=== PATIENT | female | born 2000 | race Caucasian/White ===

== ENCOUNTER 2024-08-03 09:30 | Emergency (ER) | payer BC ==
[2024-08-03 10:05] VITALS: PULSE 80; TEMP 97.8
[2024-08-03 10:14] LABS: Absolute Neutrophil Ct (ANC) 5.38 x10^3/uL (1.56-6.13); BASOPHIL % 0.3 % (0.1-1.2); Basophil (Absolute #) 0.02 x10^3/uL (0.01-0.08); Eosinophil % 1.8 % (0.7-5.8); Eosinophil (Absolute #) 0.13 x10^3/uL (0.04-0.36); Hematocrit 38.3 % (34.1-44.9); Hemoglobin 12.8 g/dL (11.2-15.7); IMMATURE GRAN # 0.02 x10^3u/L (0.001-0.031); IMMATURE GRAN % 0.3 % (0.001-0.429); Lymphocyte (Absolute #) 1.31 x10^3/uL (1.18-3.74); Mean Cell Volume 84.2 fL (79.4-94.8); Mean Corpuscular Hemoglobin 28.1 pg (25.6-32.2); Mean Corpuscular Hgb Concent. 33.4 g/dL (32.2-35.5); Mean Platelet Volume 9.8 fL (9.4-12.3); Monocyte (Absolute #) 0.41 x10^3/uL (0.24-0.86); Monocytes % 5.6 % (4.7-12.5); Platelet Count 399 x10^3/uL (182-369); Red Blood Count 4.55 x10^6/uL (3.93-5.22); Red Cell Distribution Width 13.5 % (11.7-14.4); White Blood Count 7.3 x10^3/uL (3.98-10.04)
[2024-08-03] MEDS ORDERED: Zofran 4 MG/2 ML VIAL ONE (10:16)
[2024-08-03] MEDS ORDERED: MORPHINE SULFATE 4 MG INJ ONE (10:17)
[2024-08-03] MEDS ORDERED: Sodium Chloride 0.9% 1000 ML 1,000 ML ONE (10:17)
[2024-08-03 10:20] LABS: ALBUMIN 4.7 g/dL (3.5-5.0); ANION GAP 16.3 MEQ/L (5-15); BILIRUBIN,TOTAL 0.5 mg/dL (0.2-1.3); Creatinine 1 0.83 mg/dL (0.52-1.04); EST GLOMERULAR FILTRATION RATE 100.3 ML/MIN; Potassium 3.5 mmol/L (3.5-5.1); Total Protein 7.9 g/dL (6.3-8.2)
[2024-08-03] MEDS: MORPHINE SULFATE 4 MG INJ IV ONE (10:20)
[2024-08-03] MEDS: Zofran 4 MG/2 ML VIAL IV ONE (10:20)
[2024-08-03 10:21] LABS: HCG URINE TEST NEGATIVE (NEGATIVE)
[2024-08-03] MEDS: Sodium Chloride 0.9% 1000 ML 1,000 ML IV STA (10:22)
[2024-08-03 10:23] LABS: Appearance Clear (Clear); Bacteria Rare /HPF (None Seen); Bilirubin Negative (Negative); Blood Trace (Negative); Epithelial Cells Few /HPF (None Seen); Glucose, Urine Negative (Negative); Ketones 15 (Negative); Leukocyte Esterase Negative (Negative); Nitrite Negative (Negative); Ph 7.5 (4.6-8.0); Protein,Urine Dip Trace (Negative); Specific Gravity 1.015 (1.005-1.030); Urobilinogen 0.2 mg/dL (0.2)
[2024-08-03 10:25] LABS: ADD URINE CULTURE? YES (NO)
--- NOTE | 2024-08-03 10:49 | ERPHSYRPT ---
- History of Present Illness Time Seen by Provider: 08/03/24 09:32 Historian: patient Exam Limitations: no limitations Patient Subjective Stated Complaint: Pt c/o of left flank pain that radiates to the left front lower quadrant, pain for 3 days Triage Nursing Assessment: Pt brought to the ER by her , rolan sparks, rates pain as 7/10, states that the pain is getting worse with time, pain to left lower abdomen with palpatation, pt is trying to get at this time,urinary frequency, diarrhea, pulses normal, skin n/w/d, appears to be in moderate pain Physician History: 24-year-old female presented to the ER with complaint of left flank pain off and on for the last 3 days. Continues last couple of hours, moderate to severe sharp throbbing, radiating to left groin. Reports associated loose stool and so me dysuria with hesitancy. Reports associated nausea but no vomiting. No history of kidney stones. No fever or chills reported. Allergies/Adverse Reactions: No Known Drug Allergies Allergy (Verified 08/03/24 09:57) Hx Influenza Vaccination/Date Given: No Hx Pneumococcal Vaccination/Date Given: No Travel Risk - International Travel Have you traveled outside of the country in past 3 weeks: No - Emerging Infectious Disease Are you exhibiting symptoms associated with any current EIDs: No - Review of Systems Constitutional: No Symptoms Eyes: No Symptoms Ears, Nose, & Throat: No Symptoms Respiratory: No Symptoms Cardiac: No Symptoms Abdominal/Gastrointestinal: Abdominal Pain, Nausea, Diarrhea Genitourinary Symptoms: Dysuria, Hesitancy, Flank Pain Skin: No Symptoms Neurological: No Symptoms Endocrine: No Symptoms - Past Medical History Pertinent Past Medical History: Yes Other Medical History: Hemangioma - Past Surgical History Past Surgical History: Yes Other Surgical History: Hemangiomas - Female History Hx Last Menstrual Period: 07/15/2024 Hx Now: (unkn) - Social History Smoking Status: Current every day smoker Exposure to second hand smoke: No Drug Use: none Patient Lives Alone: No - Social Determinants of Health Will the patient participate in the screening: Yes Do you worry about a steady place to live?: No Do you have any problems with any of the following?: No known problems In the past 12 months,have you had to go without utilities?: No Transportation Issues: No Has anyone in your support network made you feel unsafe?: No Have you or anyone in your house had to go without enough: No - Nursing Vital Signs Nursing Vital Signs: Initial Vital Signs Temperature 97.8 F 08/03/24 09:46 Pulse Rate 80 08/03/24 09:46 Blood Pressure 135/77 08/03/24 09:46 O2 Sat by Pulse Oximetry 100 08/03/24 09:46 Pain Scale Pain Intensity [Left Lateral 7 Back] Pain Intensity 7 - Physical Exam General Appearance: no apparent distress, alert Eye Exam: PERRL/EOMI Ears, Nose, Throat Exam: normal ENT inspection Neck Exam: normal inspection, full range of motion Respiratory Exam: normal breath sounds, lungs clear Cardiovascular Exam: regular rate/rhythm, normal heart sounds Gastrointestinal/Abdomen Exam: soft, normal bowel sounds, tenderness (Left f lank/left lower quadrant), guarding Back Exam: CVA tenderness (Left) Extremity Exam: normal inspection, normal range of motion Neurologic Exam: alert, oriented x 3, cooperative Skin Exam: normal color SpO2 Interpretation: normal SpO2: 99 O2 Delivery: Room Air Ordered Tests: Active Orders 24 hr Category Date Time Status IV Insertion STAT Care 08/03/24 10:10 Completed NPO (ED) STAT Care 08/03/24 10:10 Completed ABDOMEN AND PELVIS W/0 CONTRAS [CT] Stat Exams 08/03/24 10:11 Completed CBC W DIFF Stat Lab 08/03/24 10:05 Completed CMP Stat Lab 08/03/24 10:05 Completed CULTURE,URINE Stat Lab 08/03/24 10:05 Received HCG QUALITATIVE, URINE Stat Lab 08/03/24 10:05 Completed LIPASE Stat Lab 08/03/24 10:05 Completed UA W/RFX UR CULTURE Stat Lab 08/03/24 10:05 Completed Medication Summary Discontinued Medications Generic Name Dose Route Start Last Admin Trade Name Freq PRN Reason Stop Dose Admin Sodium Chloride 1,000 mls @ 999 mls/hr 08/03/24 10:10 08/03/24 12:51 Sodium Chloride 0.9% 1000 Ml IV 08/03/24 11:10 Infused .Q1H1M STA Infusion Sodium Chloride Confirm 08/03/24 10:17 Sodium Chloride 0.9% 1000 Ml Administered 08/03/24 10:18 Dose 1,000 mls @ ud .ROUTE .STK-MED ONE Ceftriaxone Sodium 2 gm in 100 mls @ 200 mls/hr 08/03/24 12:35 08/03/24 13:47 Rocephin 2 Gm/100 Ml Nacl IV 08/03/24 13:04 Infused STAT ONE Infusion Ceftriaxone Sodium Confirm 08/03/24 12:43 Rocephin 2 Gm/100 Ml Nacl Administered 08/03/24 12:44 Dose 2 gm in 100 mls @ ud IV .STK-MED ONE Ketorolac Tromethamine 30 mg 08/03/24 10:52 08/03/24 11:05 Ketorolac Tromethamine 30 Mg/Ml Inj IV 08/03/24 10:53 30 mg STAT ONE Administration Ketorolac Tromethamine Confirm 08/03/24 11:05 Ketorolac Tromethamine 30 Mg/Ml Inj Administered 08/03/24 11:06 Dose 30 mg .ROUTE .STK-MED ONE Morphine Sulfate 4 mg 08/03/24 10:10 08/03/24 10:20 Morphine Sulfate 4 Mg/Ml Injection IV 08/03/24 10:11 4 mg STAT ONE Administration Morphine Sulfate Confirm 08/03/24 10:17 Morphine Sulfate 4 Mg/Ml Injection Administered 08/03/24 10:18 Dose 4 mg .ROUTE .STK-MED ONE Ondansetron HCl 4 mg 08/03/24 10:10 08/03/24 10:20 Ondansetron Hcl 4 Mg/2 Ml Vial IV 08/03/24 10:11 4 mg STAT ONE Administration Ondansetron HCl Confirm 08/03/24 10:16 Ondansetron Hcl 4 Mg/2 Ml Vial Administered 08/03/24 10:17 Dose 4 mg .ROUTE .STK-MED ONE Tamsulosin HCl 0.4 mg 08/03/24 12:34 08/03/24 12:45 Tamsulosin Hcl 0.4 Mg Cap PO 08/03/24 12:35 0.4 mg STAT STA Administration Tamsulosin HCl Confirm 08/03/24 12:43 Tamsulosin Hcl 0.4 Mg Cap Administered 08/03/24 12:44 Dose 0.4 mg .ROUTE .STK-MED ONE Lab/Rad Data: Laboratory Result Diagrams 08/03/24 10:05 08/03/24 10:05 Laboratory Results 08/03/24 08/03/24 08/03/24 Range/Units 10:05 10:05 10:05 WBC 7.3 (3.98-10.04) x10^3/uL RBC 4.55 (3.93-5.22) x10^6/uL Hgb 12.8 (11.2-15.7) g/dL Hct 38.3 (34.1-44.9) % MCV 84.2 (79.4-94.8) fL MCH 28.1 (25.6-32.2) pg MCHC 33.4 (32.2-35.5) g/dL RDW 13.5 (11.7-14.4) % Plt Count 399 H (182-369) x10^3/uL MPV 9.8 (9.4-12.3) fL Gran % 74.0 H (34.0-71.1) % Immature Gran % (Auto) 0.3 (0.001-0.429) % Nucleat RBC Rel Count 0.0 (0.00-0.2) % Eos # (Auto) 0.13 (0.04-0.36) x10^3/uL Immature Gran # (Auto) 0.02 (0.001-0.031) x10^3u/L Absolute Lymphs (auto) 1.31 (1.18-3.74) x10^3/uL Absolute Monos (auto) 0.41 (0.24-0.86) x10^3/uL Absolute Nucleated RBC 0.00 (0.00-0.012) x10^3u/L Lymphocytes % 18.0 L (19.3-51.7) % Monocytes % 5.6 (4.7-12.5) % Eosinophils % 1.8 (0.7-5.8) % Basophils % 0.3 (0.1-1.2) % Absolute Granulocytes 5.38 (1.56-6.13) x10^3/uL Basophils # 0.02 (0.01-0.08) x10^3/uL Sodium 141 (135-145) mmol/L Potassium 3.5 (3.5-5.1) mmol/L Chloride 106 (98-107) mmol/L Carbon Dioxide 22 (22-30) mmol/L Anion Gap 16.3 H (5-15) MEQ/L BUN 7 (7-17) mg/dL Creatinine 0.83 (0.52-1.04) mg/dL Estimated GFR 100.3 ML/MIN Glucose 99 (74-106) mg/dL Calcium 10.0 (8.4-10.2) mg/dL Total Bilirubin 0.50 (0.2-1.3) mg/dL AST 25 (14-36) U/L ALT 20 (0-35) U/L Alkaline Phosphatase 106 (38-126) U/L Serum Total Protein 7.9 (6.3-8.2) g/dL Albumin 4.7 (3.5-5.0) g/dL Lipase 41 (23-300) U/L Urine Color (Yellow) Urine Appearance (Clear) Urine pH (4.6-8.0) Ur Specific [place] (1.005-1.030) Urine Protein (Negative) Urine Glucose (UA) (Negative) mg/dL Urine Ketones (Negative) Urine Blood (Negative) Urine Nitrite (Negative) Urine Bilirubin (Negative) Urine Urobilinogen (0.2) mg/dL Ur Leukocyte Esterase (Negative) U Hyaline Cast (Auto) (0-2) /LPF Urine Microscopic RBC (0-5) /HPF Urine Microscopic WBC (0-5) /HPF Ur Epithelial Cells (None Seen) /HPF Urine Bacteria (None Seen) /HPF Urine Culture Reflexed (NO) Urine HCG, Qual NEGATIVE (NEGATIVE) 08/03/24 Range/Units 10:05 WBC (3.98-10.04) x10^3/uL RBC (3.93-5.22) x10^6/uL Hgb (11.2-15.7) g/dL Hct (34.1-44.9) % MCV (79.4-94.8) fL MCH (25.6-32.2) pg MCHC (32.2-35.5) g/dL RDW (11.7-14.4) % Plt Count (182-369) x10^3/uL MPV (9.4-12.3) fL Gran % (34.0-71.1) % Immature Gran % (Auto) (0.001-0.429) % Nucleat RBC Rel Count (0.00-0.2) % Eos # (Auto) (0.04-0.36) x10^3/uL Immature Gran # (Auto) (0.001-0.031) x10^3u/L Absolute Lymphs (auto) (1.18-3.74) x10^3/uL Absolute Monos (auto) (0.24-0.86) x10^3/uL Absolute Nucleated RBC (0.00-0.012) x10^3u/L Lymphocytes % (19.3-51.7) % Monocytes % (4.7-12.5) % Eosinophils % (0.7-5.8) % Basophils % (0.1-1.2) % Absolute Granulocytes (1.56-6.13) x10^3/uL Basophils # (0.01-0.08) x10^3/uL Sodium (135-145) mmol/L Potassium (3.5-5.1) mmol/L Chloride (98-107) mmol/L Carbon Dioxide (22-30) mmol/L Anion Gap (5-15) MEQ/L BUN (7-17) mg/dL Creatinine (0.52-1.04) mg/dL Estimated GFR ML/MIN Glucose (74-106) mg/dL Calcium (8.4-10.2) mg/dL Total Bilirubin (0.2-1.3) mg/dL AST (14-36) U/L ALT (0-35) U/L Alkaline Phosphatase (38-126) U/L Serum Total Protein (6.3-8.2) g/dL Albumin (3.5-5.0) g/dL Lipase (23-300) U/L Urine Color Yellow (Yellow) Urine Appearance Clear (Clear) Urine pH 7.5 (4.6-8.0) Ur Specific [place] 1.015 (1.005-1.030) Urine Protein Trace A (Negative) Urine Glucose (UA) Negative (Negative) mg/dL Urine Ketones 15 A (Negative) Urine Blood Trace (Negative) Urine Nitrite Negative (Negative) Urine Bilirubin Negative (Negative) Urine Urobilinogen 0.2 (0.2) mg/dL Ur Leukocyte Esterase Negative (Negative) U Hyaline Cast (Auto) 3-5 A (0-2) /LPF Urine Microscopic RBC 11-20 A (0-5) /HPF Urine Microscopic WBC 6-10 A (0-5) /HPF Ur Epithelial Cells Few (None Seen) /HPF Urine Bacteria Rare A (None Seen) /HPF Urine Culture Reflexed YES (NO) Urine HCG, Qual (NEGATIVE) - Progress Progress: improved, re-examined Progress Note: 08/03/24 13:46 24-year-old is evaluated in the ER for left flank pain. Patient is given fluids and symptomatic treatment with morphine and Toradol, on reevaluation her pain is much improved. Workup showed normal white count, fairly unremarkable chemistries. Does have some element of UTI and given dose of Rocephin. Patient CT showed left mid ureteral stone 5 x 4 x 2.5 mm with element of obstruction and hydroureteronephrosis and perinephric fat stranding. Discussed the results of workup with patient and family and recommended transfer to facility with urology services. Per patient and her they would like to go home and outpatient follow-up. Discussed in detail about UTI with obstructive uropathy which can cause urosepsis and can be debilitating but still they do not want to to be transferred. They have been told that not a whole lot of urology services/clinics are available around this area and we have not called the urology because no one is on-call in [place] but we would give the number of Dr. Daugherty and they can call and make an appointment. She is also given Flomax in here and to go home and will continue with antibiotics. Both and were involved in decision making. They are not confused or altered at all. Counseled pt/family regarding: lab results, diagnosis, need for follow-up, rad results Medical Desision Making - Independent Historian Additional History obtained from: Spouse - Diagnostic Testing Diagnostic test were ordered, analyzed, and reviewed by me: Yes Radiological Interpretation: Reviewed by me, Teleradiologist Report - Risk of complications The pt has a mod risk of morbidity or mortality based on: Need for prescription drug management - Departure Departure Disposition: Home Clinical Impression: Ureterolithiasis, Acute UTI (urinary tract infection) Condition: Stable Critical Care Time: No Referrals: COLE CANAS MD [Primary Care Provider] - Follow up with PCP 1 day CRISTINE DAUGHERTY [COURTESY STAFF] - Follow up/PCP as directed (Call for appointment for reevaluation) Instructions: Kidney stones in adults, Lithotripsy for kidney stones Additional Instructions: Take Tylenol/ibuprofen as needed for pain. Follow-up with primary care/urology for reevaluation. Return to ER for intractable pain/vomiting/difficulty urination or if develop fever chills etc. Prescriptions: Ibuprofen 600 mg PO Q6HPRN PRN 10 Days #20 tablet PRN Reason: Pain Tamsulosin HCl 0.4 mg [Flomax 0.4 MG] 0.4 mg PO DAILY #30 cap Cefpodoxime Proxetil 200 mg [Vantin 200 mg] 200 mg PO BID 7 Days #14 tablet
[2024-08-03] MEDS ORDERED: TORAdol 30 mg Injection ONE (11:05)
[2024-08-03] MEDS: TORAdol 30 mg Injection IV ONE (11:05)
--- NOTE | 2024-08-03 12:28 | XRAY ---
CLINICAL HISTORY: left flank /LLQ pain COMPARISON: None. TECHNIQUE: A CT scan of the abdomen and pelvis was performed without IV contrast. Coronal and sagittal reconstructive images were also obtained. One of the following dose-reduction techniques was utilized for this exam. Automated exposure control, adjustment of the mA and/or kV according to patient size, and use of iterative reconstruction. FINDINGS: Abdomen: The liver is normal in size and measures 15 cm. No focal or diffuse parenchymal abnormality. The portal vein, intrahepatic biliary radicals, and the bile ducts are normal. Average-sized spleen showing faint multiple calcific foci, likely old granulomatous. The pancreas and adrenal glands are unremarkable. Enlarged left kidney with mild dilatation of the left pelvicalyceal system and the left ureter, due to two adjacent dense stones seen lodged at the mid ureter opposite L4 vertebral body, mod comparable diameters about 2.5 mm ([id number]). Minimal smudging of the gloria-renal and gloria-ureteric fat planes, likely oedematous. Unremarkable right kidney, no stones or hydronephrosis. The gallbladder is normal. No pericholecystic collection or radio-dense calculi in the gall bladder. The ascending colon, the transverse colon, the descending colon, and the visualized small bowel loops are unremarkable. There is no evidence of significant enlargement of the mesenteric or retroperitoneal lymph nodes. Pelvis: An enlarged uterus is noted with an ill-defined posterior wall isodense mass lesion showing internal hypodensities, measuring roughly about 8.3 x 9.6 cm along maximum CC and AP diameters respectively. Bilateral ovarian thin-walled fluid-filled cysts are noted measuring on the left side 39 mm and on the right side 28 mm, no calcification or fat density within. The urinary bladder is unremarkable, apart from a hyperdensity measuring 2.5 mm is seen related to its dome, which could be a mural calcific focus or a small stone, which needs ultrasound evaluation or re-examination in the prone position. Appendix is unremarkable. The rectosigmoid colon is unremarkable. The rest of the pelvic structures are unremarkable. The pelvic vasculature is unremarkable. No evidence of pelvic lymphadenopathy. The osseous structures in the pelvis, lower rib cage, and lumbar spine show no abnormality. No lytic or sclerotic bone lesions. Unremarkable lower Ct chest cuts. IMPRESSION: 1. Obstructing left mid-ureter stones, with mild backpressure changes. 2. A hyperdensity measuring 2.5 mm is seen related to the urinary bladder dome, which could be a mural calcific focus or a small stone, which needs ultrasound evaluation or re-examination in the prone position. 3. An enlarged uterus with an ill-defined posterior wall mass lesion, measuring roughly about 8.3 x 9.6 cm along maximum CC and AP diameters respectively, could be interstitial to a subserous fibroid and needs ultrasound evaluation. 4. Bilateral ovarian thin-walled fluid-filled cysts on the left side 39 mm and on the right side 28 mm, could be functional and needs clinical, lab correlation, and further ultrasound evaluation. [facility] ER was called at [phone] at 11:03 AM TRANSFER DRIVER, 08/03/2024 and Nurse Urszula was informed regarding the presence of Significant Medical Findings in the report. Electronically Signed by: Patience Martinez MD. (08/03/2024 12:24:36 EDT)
[2024-08-03] MEDS ORDERED: Flomax 0.4 MG ONE (12:43)
[2024-08-03] MEDS ORDERED: ROCEPHIN 2 GM/100 ML NACL 2 GM/100 ML IVPB IV ONE (12:43)
[2024-08-03] MEDS: ROCEPHIN 2 GM/100 ML NACL 2 GM/100 ML IVPB IV ONE (12:45)
[2024-08-03] MEDS: Flomax 0.4 MG PO STA (12:45)
[2024-08-03 13:31] VITALS: BP 127/77
[2024-08-03 13:46] VITALS: O2SAT 99
== END 2024-08-03 13:54 | disposition home or self-care (01) ==
LOC: ED 09:30
DX: N13.2 Hydronephrosis with renal and ureteral calculous obstruction (principal); N39.0 Urinary tract infection, site not specified; R10.9 Unspecified abdominal pain; R30.0 Dysuria; R11.0 Nausea; Z72.0 Tobacco use; Z79.899 Other long term (current) drug therapy
CPT/HCPCS: 36000; 36415; 74176; 80053; 81001; 81025; 83690; 85025; 87086; 96360; 96365; 96374; 96375; 99284; J0696; J1885; J2270; J2405; A9270-GY